=== PATIENT | male | born 1995 | race Two or more races ===

== ENCOUNTER 2017-11-25 21:44 | Emergency (ER) | payer SELFPAY ==
[~2017-11-25] VITALS: Ht 162.6 cm; Wt 81.6 kg
[2017-11-25 22:10] VITALS: BP 150/88
[2017-11-25 22:15] VITALS: BP 150/88
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
== END 2017-11-25 22:18 | disposition home or self-care (01) ==
LOC: EMR 22:02
DX: H54.62 Unqualified visual loss, left eye, normal vision right eye (principal)
CPT/HCPCS: 99282